=== PATIENT | female | born 1980 | race Caucasian/White ===

== ENCOUNTER 2018-11-25 18:19 | Emergency (ER) | payer BC ==
[~2018-11-25] VITALS: Ht 172.7 cm; Wt 72.7 kg
[2018-11-25 18:25] VITALS: Ht 172.7 cm; Wt 72.7 kg
[2018-11-25] MEDS ORDERED: LEXAPRO10 MG PO (18:27)
[2018-11-25] MEDS ORDERED: MOBIC7.5 MG PO (18:27)
[2018-11-25] MEDS ORDERED: ADOXA100 MG PO (18:28)
[2018-11-25 18:53] LABS: BASOPHILS 0.2 % (0-2); HEMATOCRIT 37.3 % (36.0-48.0); HEMOGLOBIN 12.8 g/dL (12-16); IMMATURE GRANULOCYTES 0.2 % (0-5); MCH 29.6 pg (26.0-34.0); MCHC 34.3 g/dL (31.0-37.0); MCV 86.1 fL (80.0-100.0); MEAN PLATELET VOLUME 8.9 fL (7.4-10.4); MONOCYTES 6.3 % (2-11); NEUTROPHILS 53.3 % (40-80); PLATELET COUNT 146 10x3/uL (130-400); RBC 4.33 10x6/uL (4.00-5.40); RDW 12.4 % (11.5-14.5); WBC 5.6 10x3/uL (4.8-10.8)
[2018-11-25 19:18] LABS: ALBUMIN 3.9 g/dL (3.4-5.0); ALKALINE PHOSPHATASE 66 U/L (46-116); ALT (SGPT) 21 U/L (10-68); BILIRUBIN - TOTAL 0.41 mg/dL (0.2-1.3); CALC OSMOLALITY 282 mosm/kg (275-300); CALCIUM 8.7 mg/dL (8.5-10.1); CARBON DIOXIDE 29.9 mmol/L (21.0-32.0); CHLORIDE - SERUM 106 mmol/L (98-107); CREATININE - SERUM 0.7 mg/dL (0.6-1.3); GLUCOSE 89 mg/dL (74-106); POTASSIUM - SERUM 3.8 mmol/L (3.5-5.1); PROTEIN - SERUM 7.1 g/dL (6.4-8.2); SODIUM 142 mmol/L (136-145); UREA NITROGEN 14 mg/dL (7-18); eGFR NON AFRICAN AMERICAN > 90 mL/min (90-120)
[2018-11-25] MEDS ORDERED: ACETAMINOPHEN500 M1 PO (20:19)
[2018-11-25] MEDS ORDERED: CYCLOBENZAPRINE10 MG PO (20:19)
[2018-11-25] MEDS ORDERED: PREDNISONE50 MG PO (20:19)
[2018-11-25 22:04] VITALS: BP 110/61
== END 2018-11-25 22:06 | disposition home or self-care (01) ==
LOC: D.ER 18:19
PROVIDERS: Family Medicine
DX: M79.661 Pain in right lower leg (principal); S89.91XA Unspecified injury of right lower leg, initial encounter; X50.9XXA Other and unspecified overexertion or strenuous movements or postures, initial encounter; X50.0XXA Overexertion from strenuous movement or load, initial encounter; Y93.89 Activity, other specified; Y92.019 Unspecified place in single-family (private) house as the place of occurrence of the external cause

== ENCOUNTER → 2018-12-04 15:49 | Outpatient (CLI) | payer BC ==
[2018-11-25 18:25] VITALS: BMI 24.3
[~2018-12-04 15:49] MED LIST: ACETAMINOPHEN500 M1 PO; ADOXA100 MG PO; CYCLOBENZAPRINE10 MG PO; LEXAPRO10 MG PO; MOBIC7.5 MG PO; PREDNISONE50 MG PO
== END | disposition home or self-care (01) ==
LOC: D.MRI 15:49
DX: M79.604 Pain in right leg (principal)

== ENCOUNTER 2019-03-30 05:15 | Outpatient (CLI) | payer BC ==
[2019-03-26 09:30] LABS: HEMATOCRIT 36.5 % (36.0-48.0); HEMOGLOBIN 12.8 g/dL (12-16); MCH 30.5 pg (26.0-34.0); MCHC 35.1 g/dL (31.0-37.0); MCV 87.1 fL (80.0-100.0); MEAN PLATELET VOLUME 8.7 fL (7.4-10.4); RBC 4.19 10x6/uL (4.00-5.40); RDW 12.3 % (11.5-14.5); WBC 4.6 10x3/uL (4.8-10.8)
[~2019-03-30] VITALS: Ht 172.7 cm; Wt 71.2 kg
[~2019-03-30 05:15] MED LIST changes: +ADVIL200 MG PO
[2019-03-30 06:18] VITALS: BP 105/61; Ht 172.7 cm; Wt 71.2 kg
[2019-03-30 06:32] LABS: HCG URINE NEGATIVE (NEGATIVE)
--- NOTE | 2019-03-30 09:28 | NUR ---
09 DR. VEGA ROUNDS WITH PT. DECIDES TO RESCHEDULE THIS CASE UNTILL FRIDAY. INFORMS PT AND SPOUSE. 919 IV DC'D WITH CATH INTACT RELEASED AMB.
== END 2019-03-30 09:20 | disposition home or self-care (01) ==
LOC: D.OPS 05:15 → EDSTATUS 07:30 → D.PAN 07:30 → D.OPS 07:30
PROVIDERS: Anesthesiology; ATTEND Neurological Surgery
DX: M54.16 Radiculopathy, lumbar region (principal)

== ENCOUNTER 2019-04-02 05:20 | Day surgery (SDC) | payer BC ==
[~2019-04-02] VITALS: Ht 172.7 cm; Wt 71.2 kg
--- NOTE | ~2019-04-02 | OP ---
PATIENT NAME: MARICHUY STRAUSS MEDICAL RECORD: [id number] :78 LOCATION:[facility] ADMISSION DATE: SURGEON: PAULINE ACE MD DATE OF OPERATION: 04/02/2019 PREOPERATIVE DIAGNOSIS: Right L5 radiculopathy secondary to disc protrusion at L4-L5, right with hypertrophied ligamentum flavum. Right L5 radiculopathy. PROCEDURE: Lumbar laminectomy, medial facetectomy, and foraminotomy L4-L5 right with METRx retractor with foraminotomy. SURGEON: Pauline Ace MD DESCRIPTION AND TECHNIQUE: After induction of general endotracheal anesthesia, the patient was rolled prone on a Ezra frame. Lumbar spine was prepped and draped in usual sterile fashion. Fluoroscopic x-ray and spinal needle localized at the L4-L5 interspace on the right side. A stab incision was created with a #11 blade and series of dilators was used to advance a METRx retractor, the L4-L5 interspace on the right side. Flow was confirmed with fluoroscopic x-ray. A microscope and Midas Rosalio drill were used to perform laminotomy, medial facetectomy, and foraminotomy at L4-L5 on the right. Hypertrophied ligamentum flavum was removed with Cloward rongeurs. Following this, the L5 nerve root was observed to be compressed with ventral disc protrusion at L4-L5 on the right. This was foraminal stenosis at L4-5 as well as lateral recess. These were decompressed with Cloward rongeurs. Disc material was removed with pituitary rongeurs with no further disc fragments within the disc space. Meticulous hemostasis was maintained throughout the wound. The wound was irrigated with copious amounts of Ancef irrigant solution. The retractor was removed. The fascia was closed with 3-0 Vicryl suture, the subdermal layer was closed with 3-0 Vicryl suture. The skin was closed with mackenzie. A sterile dressing was applied to the wound. The patient was awakened in good condition, taken to recovery. All counts were reported as correct. Blood loss was minimal. TRANSINT:[id number] Voice Confirmation ID: [id number] DOCUMENT ID: [id number] PAULINE ACE MD CC: [id number] DICTATION DATE: 04/06/191822 INDUSTRIAL ILLUMINATING ENGINEER: 04/06/19 2359 [facility] 04/02/19 [facility] [address] [place] [address]
[2019-04-02 06:46] VITALS: BP 105/61; Ht 172.7 cm; Wt 71.2 kg
--- NOTE | 2019-04-02 08:11 | NUR ---
RYAN FRAME USED FOR POSITIONING
--- NOTE | 2019-04-02 09:33 | NUR ---
PT CARE ASSUMED FROM GABE RUFFIN RN, REPORT RECEIVED.
[2019-04-02] MEDS ORDERED: HYDROCODON-ACE1 EA10 PO (10:15)
--- NOTE | 2019-04-02 11:05 | NUR ---
PATIENT DRESSING IN PERSONAL CLOTHING AFTER VOIDING IN TOILET AND IV REMOVAL
--- NOTE | 2019-04-02 11:25 | NUR ---
DISCHARGE INSTRUCTIONS REVIEWED WITH PATIENT AND SPOUSE, DISCHARGED HOME VIA WHEELCHAIR TO PRIVATE VEHICLE WITH SPOUSE
== END 2019-04-02 11:25 | disposition home or self-care (01) ==
LOC: D.OPS 05:20
PROVIDERS: ATTEND Neurological Surgery
DX: M51.16 Intervertebral disc disorders with radiculopathy, lumbar region (principal); Z01.812 Encounter for preprocedural laboratory examination